=== PATIENT | female | born 1965 | race Caucasian/White ===

== ENCOUNTER 2019-12-16 19:41 | Emergency (ER) | payer OTHER ==
--- OUTSIDE RECORDS SUMMARY | 2019-12-16 19:43 | XMS REPORT | Continuity of Care Document ---
:1965 Author Organization [facility] t Address [facility] Barry Portillo [address] [place] [address] Care Team Providers Name Role Phone Cullen Maxwell MD Primary Care Physician Carl ROD Attending Clinician Unavailable Carl ROD Admitting Clinician Unavailable Problems Condition Condition Condition Status Onset Resolution Last Treating Co mments Source Name Details Category Date Date Treatment Clinician Date Deviated Deviated Disease [facility] Allergies, Adverse Reactions, Alerts Allergy Allergy Status Severity Reaction(s) Onset Inactive Treating Comm ents Source Name Type Date Date Clinician Ashley Liz Active Hives [facility]23 [facility] - adverse 00:00: [facility] reaction 00 [place] [facility] Social History Social Habit Start Date Stop Date Quantity Comments Source Sex Assigned At [facility] Tobacco Comment 2016-06-23 2016-06-23 quit 1984 [facility] - 00:00:00 00:00:00 [facility] Alcohol Comment 2016-06-23 2016-06-23 rare [facility] - 00:00:00 00:00:00 [facility] Smoking Status Start Date Stop Date Source Former smoker 2016-07-01 00:00:00 2016-07-01 00:00:00 [facility] Medications Ordered Filled Start Stop Current Ordering Indication Dosage Frequency Signature Comments Components Source Medication Medication Date Date Medication? Clinician (SIG) Name Name amitriptyli Yes 20mg QD Take 20 mg [facility] [address] ne (ELAVIL) 06-23 by mouth ke s - 10 MG 12:47: nightly. Medical tablet Center lisinopril Yes 10mg QD Take [address] (PRINIVIL,Z 4-06 by mouth [facility] - ESTRIL) 10 12:47: daily. Medic al MG tablet 48 Center metFORMIN Yes 500mg Take [address] (GLUMETZA) 4-06 mg by [facility] - 500 MG 12:47: mouth 2 Medical (MOD) 24 hr 48 (two) Center tablet times daily with breakfast and dinner. rosuvastati 2017 Yes 5mg QD Take [address] n (CRESTOR) 4-06 by mouth [facility] - 5 MG tablet 12:47: daily. [address] montelukast Yes 10mg QD Take [address] [address] (SINGULAIR) 4-06 by mouth [facility] s - 10 mg 12:47: nightly. Medical tablet 48 [place] mometasone Yes 2{spray QD [address] [address] (NASONEX) 4-06 } by Nasal [facility] - 50 12:47: route Medical mcg/actuati 48 daily. Center on nasal spray ferrous Yes 325mg Take 325 [facility] sulfate 4-06 mg by [facility] - (IRON) 325 12:47: mouth Medica l (65 FE) MG [address] with [address] tablet breakfast. B Yes QD Take by [facility] INFANTIS/B 4-06 mouth [facility] - ANI/B SUZANNE/B 12:47: daily. [facility] BIFID 48 [place] (PROBIOTIC 4X ORAL) PNV w/o Yes QD Take by [facility] calcium-iro 4-06 mouth [facility] - n fum-FA 12:47: daily. Medical (M-VIT) 48 Center 27-1 mg Tab levothyroxi Yes 88ug Take [address] ne 4-06 mcg by [facility] - (SYNTHROID, 12:47: mouth Medic al LEVOTHROID) 47 Every Center 88 MCG morning on tablet an empty stomach. glipiZIDE Yes 5mg Q.5D Take [address] [facility] (GLUCOTROL 4-06 by mouth 2 Rogelio es - XL) 5 MG 24 12:47: (two) Medic al hr tablet 47 times Center daily. Procedures This patient has no known procedures. Results Test Description Test Time Test Comments Results Result Comments Source TISSUE EXAM 2016-07-01 Surgical Pathology 17:12:00 Report Case: [id number] Steve white Provider: Jluis Rod MD Ordering Provider: Jluis Rod MD Ordering Location: [facility] Collected: 07/01/2016 0820 SERVICES Pathologist: Marietta Garza MD Received: 07/01/2016 1144 Specimens: A) - Septum, SEPTUM B) - Turbinate A. SEPTUM, REMOVAL: - BONE FREAGMENTS, CONSISTENT WITH NASAL SEPTAL TYPE, GROSS EXAMINATION ONLYB. TURBINATE TISSUE, REMOVAL: TURBINATE TISSUE, GROSS EXAMINATION ONLYMO/CG/pl Signing Pathologist Direct Phone Line: [phone] X2None givenA. Septum; B. TurbinateThe specimen is received two fluidless containers both labeled with patient information.Specimen A labeled "septum" consists of multiple fragments of dent-pink bone measuring 2 x 2 x 0.5 cm in aggregate. The specimen is submitted for gross identification only. Specimen B labeled "turbinate tissue" consists of two segments of dent-pink turbinate tissue measuring 2 x 0.5 x 0.4 cm and 2.5 x 0.6 x 0.4 cm. The specimen is submitted for gross identification only. CG/pl POCT-GLUCOSE METER 2016-07-01 06:39:00 Test Item Value Reference Range Interpretation Comme [facility] POC-GLUCOSE METER (BEAKER) (test 101 mg/dL 70-[address] [facility] [address] [facility] code = 1538) [facility] 7703 0 [id number] 13:53:00 Test Item Value Reference Range Interpretation Comments SODIUM (BEAKER) (test 141 meq/L 136-145 code = 381) POTASSIUM (BEAKER) 4.3 meq/L 3.5-5.1 Specimen slightly (test code = 379) hemolyzed CHLORIDE (BEAKER) 107 meq/L 98-107 (test code = 382) CO2 (BEAKER) (test 23 meq/L 22-29 code = 355) [id number] 13:53:00 Test Item Value Reference Range Interpretation Comments GLUCOSE RANDOM (BEAKER) (test code 102 mg/dL 70-105 = 652) Effective 02/04/2014: Reference Range Change-Adult onlyNew: 70-105 Previous: 70-110BUN AND [id number] 13:53:00 Test Item Value Reference Range Interpretation Comments BLOOD UREA NITROGEN 16 mg/dL 7-21 (BEAKER) (test code = 354) CREATININE (BEAKER) 0.80 mg/dL 0.57-1.25 Specimen slightly (test code = 358) hemolyzed EGFR (BEAKER) (test 76 mL/min/1.73 ESTIMA TRINA GFR IS code = 1092) sq m NOT ACCURATE CREATININE CLEARANCE IN PREDICTING GLOMERULAR FILTRATION RATE . ESTIMATED GFR I S NOT APPLICABLE FOR DIALYSIS PATIEN TS. SCREEN, [id number] 13:46:00 Test Item Value Reference Range Interpretation Comments TEST URINE (BEAKER) (test Negative code = 583) CBC W/PLT COUNT & AUTO [id number] 13:38:00 Test Item Value Reference Range Interpretation Comments WHITE BLOOD CELL COUNT (BEAKER) 6.2 K/ L 4.0-10.0 (test code = 775) RED BLOOD CELL COUNT (BEAKER) 4.97 M/ L 4.00-5.00 (test code = 761) HEMOGLOBIN (BEAKER) (test code = 15.3 GM/DL 12.0-15.0 H 410) HEMATOCRIT (BEAKER) (test code = 46.1 % 36.0-45.0 H 411) MEAN CORPUSCULAR VOLUME (BEAKER) 92.7 fL 82.0-99.0 (test code = 753) MEAN CORPUSCULAR HEMOGLOBIN 30.7 pg 27.0-33.0 (BEAKER) (test code = 751) MEAN CORPUSCULAR HEMOGLOBIN CONC 33.1 GM/DL 32.0-36.0 (BEAKER) (test code = 752) RED CELL DISTRIBUTION WIDTH 11.4 % 10.3-14.2 (BEAKER) (test code = 412) PLATELET COUNT (BEAKER) (test 257 K/CU MM 150-430 code = 756) MEAN PLATELET VOLUME (BEAKER) 6.8 fL 6.5-10.5 (test code = 754) NUCLEATED RED BLOOD CELLS 0 /100 WBC 0-0 (BEAKER) (test code = 413) NEUTROPHILS RELATIVE PERCENT 61 % (BEAKER) (test code = 429) LYMPHOCYTES RELATIVE PERCENT 30 % (BEAKER) (test code = 430) MONOCYTES RELATIVE PERCENT 6 % (BEAKER) (test code = 431) EOSINOPHILS RELATIVE PERCENT 2 % (BEAKER) (test code = 432) BASOPHILS RELATIVE PERCENT 1 % (BEAKER) (test code = 437) NEUTROPHILS ABSOLUTE COUNT 3.77 K/ L 1.80-8.00 (BEAKER) (test code = 670) LYMPHOCYTES ABSOLUTE COUNT 1.85 K/ L 1.48-4.50 (BEAKER) (test code = 414) MONOCYTES ABSOLUTE COUNT (BEAKER) 0.38 K/ L 0.00-1.30 (test code = 415) EOSINOPHILS ABSOLUTE COUNT 0.14 K/ L 0.00-0.50 (BEAKER) (test code = 416) BASOPHILS ABSOLUTE COUNT (BEAKER) 0.04 K/ L 0.00-0.20 (test code = 417) 0.00
--- OUTSIDE RECORDS SUMMARY | 2019-12-16 19:43 | XMS REPORT | Clinical Summary ---
:1965 Author Organization [facility] Address [address] [place] [address] Care Team Providers Name Role Phone Cullen Maxwell MD Primary Care Provider Allergies Active Allergy Reactions Severity Noted Date Comments Ashley Fuchs 06/23/2016 Medications Medication Sig Dispensed Refills Start Date End Date Status levothyroxine Take 88 mcg by 0 A ctive (SYNTHROID, mouth Every LEVOTHROID) 88 MCG morning on an tablet empty stomach. glipiZIDE (GLUCOTROL Take 5 mg by mouth 0 Active XL) 5 MG 24 hr tablet 2 (two) times daily. amitriptyline (ELAVIL) Take 20 mg by 0 Active 10 MG tablet mouth nightly. lisinopril Take 10 mg by 0 Activ e (PRINIVIL,ZESTRIL) 10 mouth daily. MG tablet metFORMIN (GLUMETZA) Take 500 mg by 0 Active 500 MG (MOD) 24 hr mouth 2 (two) tablet times daily with breakfast and dinner. rosuvastatin (CRESTOR) Take 5 mg by mouth 0 Active 5 MG tablet daily. montelukast Take 10 mg by 0 Acti ve (SINGULAIR) 10 mg mouth nightly. tablet mometasone (NASONEX) 2 sprays by Nasal 0 Active 50 mcg/actuation nasal route daily. spray ferrous sulfate (IRON) Take 325 mg by 0 Active 325 (65 FE) MG tablet mouth daily with breakfast. B INFANTIS/B ANI/B Take by mouth 0 Active SUZANNE/B BIFID (PROBIOTIC daily. 4X ORAL) PNV w/o calcium-iron Take by mouth 0 Active fum-FA (M-VIT) 27-1 mg daily. Tab Active Problems Problem Noted Date Deviated nasal septum 07/01/2016 Social History Tobacco Use Types Packs/Day Years Used Date Former Smoker Comments: quit 1983 Alcohol Use Drinks/Week oz/Week Comments Yes rare Sex Assigned at Date Recorded Not on file Job Start Date Occupation Industry Not on file Not on file Not on file Travel History Travel Start Travel End No recent travel history available. Last Filed Vital Signs Not on file Plan of Treatment Not on file Results Not on fileafter 12/15/2018 Insurance Payer Benefit Plan / Group Subscriber ID Type Phone A ddress C[employer] - MGD CARE CIGNA HMO/POS/OPEN ACCESS xxxxxxxxx HMO/POS Guarantor Name Account Type Relation to Date of Phone Bill ing Patient Address Cris Blood Personal/Family Self [phone] [facility] (Home) [place] [address] Advance Directives For more information, please contact:[facility] [place], [place] [phone] Code Status Date Activated Date Inactivated Comments Full Code 07/01/2016 8:54 AM 07/01/2016 1:16 PM This code status was determined by: Patient
[2019-12-16] MEDS ORDERED: FAMOTIDINE 20 MG/2 ML VIAL IV ONE (20:47)
[2019-12-16] MEDS ORDERED: METHYLPREDNISOLONE 125 MG INJ ONE (20:47)
[2019-12-16] MEDS ORDERED: DIPHENHYDRAMINE 50 MG/ML VIAL ONE (20:47)
[2019-12-16] MEDS ORDERED: NA CHLORIDE 0.9% 50 ML IV ONE (20:47)
--- NOTE | 2019-12-16 21:35 | ER ---
Nurse's Notes [facility] Name: Cris Blood Age: 54 yrs Sex: Female : 1965 Arrival Date: 12/16/2019 Time: 19:44 Bed 5 Private MD: Diagnosis: Acute Allergic Reaction;Urticaria Presentation: 12/15 19:56 Chief complaint: Patient states: I started having an allergic reaction around 1000. My jb4 hands feel tight and my arms feel tight and it is painful like they are bruised. Coronavirus screen: Client denies travel out of the [place] in the last 14 days. At this time, the client does not indicate any symptoms associated with coronavirus-19. Ebola Screen: No symptoms or risks identified at this time. Onset: The symptoms/episode began/occurred this morning. Anaphylaxis evaluation, no signs or symptoms of anaphylaxis were noted. Initial Sepsis Screen: Does the patient meet any 2 criteria? HR > 90 bpm. Yes Does the patient have a suspected source of infection? No. Patient's initial sepsis screen is negative. Risk Assessment: Do you want to hurt yourself or someone else? Patient reports no desire to harm self or others. Onset of symptoms was December 16, 2019. Transition of care: patient was not received from another setting of care. 19:56 Method Of Arrival: Ambulatory jb4 19:56 Acuity: REJI 3 jb4 Triage Assessment: 20:00 General: Appears in no apparent distress. uncomfortable, Behavior is calm, cooperative, jb4 appropriate for age. Pain: Complains of pain in right hand, left hand, right arm and left arm Pain does not radiate. Pain currently is 5 out of 10 on a pain scale. 20:00 Respiratory: Airway is patent Respiratory effort is even, unlabored, Respiratory jb4 pattern is regular, symmetrical, Breath sounds are clear bilaterally. Derm: Skin is intact, Skin is pink, warm \T\ dry. Rash noted that is itchy, red, raised, on right hand, left hand, dorsal aspect of right forearm, right tricep, dorsal aspect of left forearm and left tricep. 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 jb4 Historical: - Allergies: 20:01 NKDA; jb4 20:01 molds, cockroach; jb4 - Home Meds: 20:01 CoQ-10 Oral [Active]; lisinopril 10 mg Oral tab [Active]; metformin 500 mg Oral Tb24 jb4 [Active]; levothyroxine oral [Active]; glipizide 5 mg Oral tab [Active]; Singulair 5 mg Oral chew [Active]; rosuvastatin 5 mg Oral tab [Active]; Fish Oil Oral [Active]; flaxseed oil 1,030 mg Oral cap [Active]; Culturelle 10 billion cell Oral cap [Active]; paroxetine HCl 40 mg oral tab [Active]; - PMHx: 20:01 Diabetes - NIDDM; Hyperlipidemia; Hypertension; Hypothyroidism; jb4 - PSHx: 20:03 Tubal ligation; jb4 - Immunization history:: Adult Immunizations up to date. - Social history:: Smoking status: Patient denies any tobacco usage or history of. Patient/guardian denies using alcohol, street drugs. Screenin:25 Abuse screen: Denies threats or abuse. Denies injuries from another. Nutritional mg2 screening: No deficits noted. Tuberculosis screening: No symptoms or risk factors identified. Fall Risk None identified. Assessment: 19:47 Reassessment: attempted to call patient back, informed patient went to their vehicle. jb4 20:25 General: Appears in no apparent distress. comfortable, Behavior is calm, cooperative. mg2 Pain: Complains of pain in right arm and left arm. Neuro: Level of Consciousness is awake, alert, obeys commands, Oriented to person, place, time, situation. Cardiovascular: Capillary refill < 3 seconds Patient's skin is warm and dry. Respiratory: Airway is patent Respiratory effort is even, unlabored, Respiratory pattern is regular, symmetrical. GI: No signs and/or symptoms were reported involving the gastrointestinal system. : No signs and/or symptoms were reported regarding the genitourinary system. EENT: No signs and/or symptoms were reported regarding the EENT system. Derm: Skin is pink, warm \T\ dry. normal, Rash noted that is itchy, red, raised. Musculoskeletal: Circulation, motion, and sensation intact. Capillary refill < 3 seconds. 21:25 Reassessment: Patient and/or family updated on plan of care and expected duration. Pain sg level reassessed. Patient is alert, oriented x 3, equal unlabored respirations, skin warm/dry/pink. Michele SINGLETARY at bedside re evaluating pt at this time, awaiting dispo orders. 21:42 Reassessment: Patient states feeling better. Patient states symptoms have improved. mg2 Vital Signs: 19:56 BP 129 / 93; Pulse 98; Resp 16; Temp 98.3(O); Pulse Ox 97% on R/A; Weight 129.27 kg jb4 (R); Height 5 ft. 6 in. (167.64 cm); Pain 5/10; 21:18 BP 123 / 69; Pulse 74; Resp 16; Temp 98.3; Pulse Ox 97% on R/A; sg 19:56 Body Mass Index 46.00 (129.27 kg, 167.64 cm) jb4 ED Course: 19:44 Patient arrived in ED. bp1 19:58 Triage completed. jb4 20:01 Arm band placed on. jb4 20:24 Rafy Figueroa, FILEMON is Primary Nurse. mg2 20:25 Michele Alba PA is PHCP. jr8 20:25 Chetan Davis MD is Attending Physician. jr8 20:25 Patient has correct armband on for positive identification. Pulse ox on. NIBP on. Door mg2 closed. 20:25 No provider procedures requiring assistance completed. mg2 20:45 Missed attempt(s): 20 gauge in right antecubital area. Bleeding controlled, band aid sg applied, catheter tip intact. 20:48 Missed attempt(s): 22 gauge in right hand. Bleeding controlled, band aid applied, sg catheter tip intact. 20:55 Inserted saline lock: 22 gauge in left hand, using aseptic technique. mg2 21:42 IV discontinued, intact, bleeding controlled, No redness/swelling at site. Pressure mg2 dressing applied. Administered Medications: 20:55 Drug: diphenhydrAMINE 50 mg Route: IVP; Site: left hand; mg2 21:42 Follow up: Response: No adverse reaction; Marked relief of symptoms mg2 20:55 Drug: SOLU-Medrol 125 mg Route: IVP; Site: left hand; mg2 21:41 Follow up: Response: No adverse reaction; Marked relief of symptoms mg2 20:55 Drug: Pepcid 20 mg Route: IVP; Site: left hand; mg2 21:41 Follow up: Response: No adverse reaction; Marked relief of symptoms mg2 Outcome: 21:35 Discharge ordered by . jr8 21:42 Discharged to home ambulatory. mg2 21:42 Condition: stable 21:42 Discharge instructions given to patient, Instructed on discharge instructions, follow up and referral plans. medication usage, Demonstrated understanding of instructions, follow-up care, medications, Prescriptions given X 1. 21:42 Patient left the ED. mg2 Signatures: Ata Guillen, RN RN Michele Alba PA PA jr8 Adria De Leon RN RN jb4 Rafy Figueroa RN RN mg2 [facility] Corrections: (The following items were deleted from the chart) 20:02 20:01 LMP N/A - Hysterectomy jb4 jb4 20:03 20:01 PSHx: Hysterectomy; jb4 jb4 20:56 20:25 Patient did not have IV access during this emergency room visit. mg2 mg2
--- NOTE | 2019-12-16 21:36 | EDPHYS ---
Physician Documentation [facility] Name: Cris Blood Age: 54 yrs Sex: Female : 1965 Arrival Date: 12/16/2019 Time: 19:44 Bed 5 Private MD: ED Physician Chetan Davis HPI: 12/15 21:09 This 54 yrs old Female presents to ER via Ambulatory with complaints of jr8 Allergic Reaction. 21:09 The patient presents with rash. Onset: The symptoms/episode began/occurred acutely, jr8 today. Associated signs and symptoms: Pertinent positives: hives. Possible causes: The patient has no known obvious cause for the symptoms. Severity of symptoms: At their worst the symptoms were mild in the emergency department the symptoms are unchanged. The patient has not experienced similar symptoms in the past. The patient has not recently seen a physician. 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 jb4 Historical: - Allergies: 20:01 NKDA; jb4 20:01 molds, cockroach; jb4 - Home Meds: 20:01 CoQ-10 Oral [Active]; lisinopril 10 mg Oral tab [Active]; metformin 500 mg Oral Tb24 jb4 [Active]; levothyroxine oral [Active]; glipizide 5 mg Oral tab [Active]; Singulair 5 mg Oral chew [Active]; rosuvastatin 5 mg Oral tab [Active]; Fish Oil Oral [Active]; flaxseed oil 1,030 mg Oral cap [Active]; Culturelle 10 billion cell Oral cap [Active]; paroxetine HCl 40 mg oral tab [Active]; - PMHx: 20:01 Diabetes - NIDDM; Hyperlipidemia; Hypertension; Hypothyroidism; jb4 - PSHx: 20:03 Tubal ligation; jb4 - Immunization history:: Adult Immunizations up to date. - Social history:: Smoking status: Patient denies any tobacco usage or history of. Patient/guardian denies using alcohol, street drugs. ROS: 21:09 Eyes: Negative for injury, pain, redness, and discharge, ENT: Negative for injury, jr8 pain, and discharge, Neck: Negative for injury, pain, and swelling, Cardiovascular: Negative for chest pain, palpitations, and edema, Respiratory: Negative for shortness of breath, cough, wheezing, and pleuritic chest pain, Abdomen/GI: Negative for abdominal pain, nausea, vomiting, diarrhea, and constipation, Back: Negative for injury and pain, MS/Extremity: Negative for injury and deformity, Neuro: Negative for headache, weakness, numbness, tingling, and seizure. 21:09 Skin: Positive for rash. Exam: 21:09 Eyes: Pupils equal round and reactive to light, extra-ocular motions intact. Lids and jr8 lashes normal. Conjunctiva and sclera are non-icteric and not injected. Cornea within normal limits. Periorbital areas with no swelling, redness, or edema. ENT: Nares patent. No nasal discharge, no septal abnormalities noted. Tympanic membranes are normal and external auditory canals are clear. Oropharynx with no redness, swelling, or masses, exudates, or evidence of obstruction, uvula midline. Mucous membranes moist. Neck: Trachea midline, no thyromegaly or masses palpated, and no cervical lymphadenopathy. Supple, full range of motion without nuchal rigidity, or vertebral point tenderness. No Meningismus. Cardiovascular: Regular rate and rhythm with a normal S1 and S2. No gallops, murmurs, or rubs. Normal PMI, no JVD. No pulse deficits. Respiratory: Lungs have equal breath sounds bilaterally, clear to auscultation and percussion. No rales, rhonchi or wheezes noted. No increased work of breathing, no retractions or nasal flaring. Abdomen/GI: Soft, non-tender, with normal bowel sounds. No distension or tympany. No guarding or rebound. No evidence of tenderness throughout. Back: No spinal tenderness. No costovertebral tenderness. Full range of motion. MS/ Extremity: Pulses equal, no cyanosis. Neurovascular intact. Full, normal range of motion. Neuro: Awake and alert, GCS 15, oriented to person, place, time, and situation. Cranial nerves II-XII grossly intact. Motor strength 5/5 in all extremities. Sensory grossly intact. Cerebellar exam normal. Normal gait. 21:09 Skin: rash a moderate rash is noted, urticaria, on the right arm, left arm, right leg and left leg. Vital Signs: 19:56 BP 129 / 93; Pulse 98; Resp 16; Temp 98.3(O); Pulse Ox 97% on R/A; Weight 129.27 kg jb4 (R); Height 5 ft. 6 in. (167.64 cm); Pain 5/10; 21:18 BP 123 / 69; Pulse 74; Resp 16; Temp 98.3; Pulse Ox 97% on R/A; sg 19:56 Body Mass Index 46.00 (129.27 kg, 167.64 cm) jb4 MDM: 20:25 Patient medically screened. jr8 21:34 Data reviewed: vital signs, nurses notes, and as a result, I will discharge patient. jr8 Data interpreted: Pulse oximetry: on room air is 100 %. Interpretation: normal. Counseling: I had a detailed discussion with the patient and/or guardian regarding: the historical points, exam findings, and any diagnostic results supporting the discharge/admit diagnosis, the need for outpatient follow up, a family practitioner, to return to the emergency department if symptoms worsen or persist or if there are any questions or concerns that arise at home. Response to treatment: the patient's symptoms have resolved after treatment. 12/15 21:09 Order name: IV; Complete Time: 21:10 jr Administered Medications: 20:55 Drug: diphenhydrAMINE 50 mg Route: IVP; Site: left hand; mg2 21:42 Follow up: Response: No adverse reaction; Marked relief of symptoms mg2 20:55 Drug: SOLU-Medrol 125 mg Route: IVP; Site: left hand; mg2 21:41 Follow up: Response: No adverse reaction; Marked relief of symptoms mg2 20:55 Drug: Pepcid 20 mg Route: IVP; Site: left hand; mg2 21:41 Follow up: Response: No adverse reaction; Marked relief of symptoms mg2 Disposition: 12/16 01:16 Co-signature as Attending Physician, Chetan Davis MD. pkl Disposition: 12/16/19 21:35 Discharged to Home. Impression: Acute Allergic Reaction, Urticaria. - Condition is Stable. - Discharge Instructions: Anaphylactic Reaction, Adult, Hives. - Prescriptions for Prednisone 20 mg Oral Tablet - take 1 tablet by ORAL route once daily for 5 days; 5 tablet. - Work release form, Medication Reconciliation Form, Thank You Letter, Antibiotic Education, Prescription Opioid Use form. - Follow up: Private Physician; When: 2 - 3 days; Reason: Recheck today's complaints, Continuance of care, Re-evaluation by your physician. - Problem is new. - Symptoms have improved. Signatures: Chetan Davis MD MD pkMichele Mijares PA PA jr8 Adria De Leon, RN RN jb4 Rafy Figueroa, RN RN mg2 Corrections: (The following items were deleted from the chart) 12/15 20:03 20:01 PSHx: Hysterectomy; jb4 jb4 21:42 21:35 12/16/2019 21:35 Discharged to Home. Impression: Acute Allergic Reaction; mg2 Urticaria. Condition is Stable. Forms are Medication Reconciliation Form, Thank You Letter, Antibiotic Education, Prescription Opioid Use. Follow up: Private Physician; When: 2 - 3 days; Reason: Recheck today's complaints, Continuance of care, Re-evaluation by your physician. Problem is new. Symptoms have improved. jr8
[2019-12-16 21:55] VITALS: TEMP 98.3; O2SAT 97
[2019-12-16 22:12] VITALS: BP 123/69
== END 2019-12-16 21:42 | disposition home or self-care (01) ==
LOC: ER 19:41
DX: L50.9 Urticaria, unspecified (principal); I10 Essential (primary) hypertension; E03.9 Hypothyroidism, unspecified; E78.5 Hyperlipidemia, unspecified; E11.9 Type 2 diabetes mellitus without complications; Z91.048 Other nonmedicinal substance allergy status
CPT/HCPCS: 96375; 96374; 99284; J1200; J2930